=== PATIENT | male | born 1945 | race Caucasian/White ===

== ENCOUNTER 2020-01-07 13:44 | Emergency (ER) | payer MEDICARE, OTHER ==
[~2020-01-07] VITALS: Ht 170.2 cm; Wt 60.0 kg
[2020-01-07 14:39] VITALS: BP 144/70
--- NOTE | 2020-01-07 16:07 | PHYS DOC ---
Past Medical History Past Medical History: Schizophrenia Past Surgical History: No Surgical History Smoking Status: Unknown if ever smoked Alcohol Use: None General Adult EDM: Chief Complaint: MEDICAL CLEARANCE HPI: HPI: Patient is a 74-year-old man who had court ordered for a psychiatric placement at [facility] due to schizophrenia. he was medically clear already, waiting for bed over there. They would not have a bed for him until next day somehow the re was some miscommunication patient was sent to ER here for medical clearance. Patient was awake alert, was talking normal denies any suicidal ideation. Patient was in no acute distress. Patient denies any abdominal pain, no nausea vomiting, no chest pain, no headache, no cough, no fever. Review of Systems: Review of Systems: Constitutional: Denies fever or chills. [] Eyes: Denies change in visual acuity. [] HENT: Denies nasal congestion or sore throat. [] Respiratory: Denies cough or shortness of breath. [] Cardiovascular: Denies chest pain or edema. [] GI: Denies abdominal pain, nausea, vomiting, bloody stools or diarrhea. [] : Denies dysuria. [] Musculoskeletal: Denies back pain or joint pain. [] Integument: Denies rash. [] Neurologic: Denies headache, focal weakness or sensory changes. [] Endocrine: Denies polyuria or polydipsia. [] Lymphatic: Denies swollen glands. [] Psychiatric: Denies depression or anxiety. [] Heart Score: Risk Factors: Risk Factors: DM, Current or recent (<one month) smoker, HTN, HLP, family hist ory of CAD, obesity. Risk Scores: Score 0 - 3: 2.5% MACE over next 6 weeks - Discharge Home Score 4 - 6: 20.3% MACE over next 6 weeks - Admit for Clinical Observation Score 7 - 10: 72.7% MACE over next 6 weeks - Early Invasive Strategies Allergies: Allergies: Allergies Coded Allergies Type Severity Reaction Last Updated Verified benztropine Allergy Unknown 01/07/20 Yes haloperidol Allergy Unknown 01/07/20 Yes risperidone Allergy Unknown 01/07/20 Yes thiothixene Allergy Unknown 01/07/20 Yes trihexyphenidyl Allergy Unknown 01/07/20 Yes Physical Exam: PE: Constitutional: Well developed, well nourished, no acute distress, non-toxic appearance. [] HENT: Normocephalic, atraumatic, bilateral external ears normal, oropharynx moist, no oral exudates, nose normal. [] Eyes: PERRLA, EOMI, conjunctiva normal, no discharge. [] Neck: Normal range of motion, no tenderness, supple, no stridor. [] Cardiovascular:Heart rate regular rhythm, no murmur [] Lungs & Thorax: Bilateral breath sounds clear to auscultation [] Abdomen: Bowel sounds normal, soft, no tenderness, no masses, no pulsatile masses. [] Skin: Warm, dry, no erythema, no rash. [] Back: No tenderness, no CVA tenderness. [] Extremities: No tenderness, no cyanosis, no clubbing, ROM intact, no edema. [] Neurologic: Alert and oriented X 3, normal motor function, normal sensory function, no focal deficits noted. [] Psychologic: Affect normal, judgement normal, mood normal. [] Current Patient Data: Vital Signs: Vital Signs Date Time Temp Pulse Resp B/P (MAP) Pulse Ox O2 Delivery O2 Flow Rate FiO2 01/07/20 13:55 97.8 79 14 180/79 (112) 99 Room Air 97.8 EKG: EKG: [] Radiology/Procedures: Radiology/Procedures: [] Course & Med Decision Making: Course & Med Decision Making Pertinent Labs and Imaging studies reviewed. (See chart for details) Patient is a 74-year-old man who had court ordered for a psychiatric placement at [facility]. he was medically clear already, waiting for bed over there. They would not have a bed for him until next day somehow there was some miscommunication patient was sent to ER here for medical clearance. Patient was awake alert, was talking normal denies any suicidal ideation. Patient was in no acute distress. Patient will be discharged back to the residential awaiting for inpatient psychiatric placement. Dragon Disclaimer: Dragon Disclaimer: This electronic medical record was generated, in whole or in part, using a voice recognition dictation system. Departure Departure Impression: Primary Impression: Schizo affective schizophrenia Disposition: 01 HOME, SELF-CARE Condition: STABLE Referrals: SHARIF WRIGHT MD (PCP) Patient Instructions: Schizophrenia Justicifation of Admission Dx: Justifications for Admission: Justification of Admission Dx: N/A MATT LEO DO Jan 07, 2020 16:07
== END 2020-01-07 16:17 | disposition home or self-care (01) ==
LOC: ER 13:44
DX: F25.9 Schizoaffective disorder, unspecified (principal); Z88.8 Allergy status to other drugs, medicaments and biological substances
CPT/HCPCS: 99283